=== PATIENT | female | born 2005 | race Caucasian/White ===

== ENCOUNTER 2023-06-28 17:00 | Emergency (ER) | payer OTHER ==
[~2023-06-28] VITALS: Ht 175.3 cm; Wt 77.3 kg
[2023-06-28 17:06] VITALS: TEMP 99.1
[2023-06-28 17:50] LABS: HEMATOCRIT 37.9 % (35.0-45.0); HEMOGLOBIN 12.6 g/dl (12.0-15.0); MEAN CELL VOLUME 87 fl (80.0-95.0); MEAN CORPUSCULAR HEMOGLOBIN 29 pg (26-32); MEAN CORPUSCULAR HGB CONC 33 g/dl (33.0-37.0); MEAN PLATELET VOLUME 8.9 fl (7.4-10.4); PLATELET COUNT 338 K/mm3 (130-400); RED BLOOD COUNT 4.34 M/mm3 (4.10-5.30); REDCELL DISTRIBUTION WIDTH-CV 12.4 % (11.5-14.5)
[2023-06-28 18:12] LABS: CALCIUM 9.3 mg/dL (8.4-10.2); CREATININE, serum 0.84 mg/dL (0.57-1.11); POTASSIUM 3.9 mmol/L (3.5-4.5); TOTAL PROTEIN 7.6 gm/dL (6.2-8.1)
[2023-06-28 18:17] LABS: BAND 5 % (0-10); EOSINOPHIL 17 % (0-4); LYMPHOCYTE 11 % (20.0-51.0); NEUTROPHILS 66 % (42.0-75.2)
[2023-06-28 18:26] LABS: BILIRUBIN,TOTAL 0.3 mg/dL (0.2-1.2)
--- NOTE | 2023-06-28 20:12 | NUR ---
PT STATES SHE HAS NO RESPIRATORY HX BUT DOES STATE HER CHEST FEELS TIGHT WHEN BREATHING.
[2023-06-28] MEDS ORDERED: PREDNISONE20 MG PO (21:27)
[2023-06-28] MEDS ORDERED: DOXYCYCLINE 10100 MG PO (21:27)
[2023-06-28 22:11] VITALS: BP 90/53; PULSE 119
== END 2023-06-28 22:18 | disposition home or self-care (01) ==
LOC: COL.ER 17:00
PROVIDERS: Nurse Practitioner
DX: J45.909 Unspecified asthma, uncomplicated (principal); R00.0 Tachycardia, unspecified; F17.290 Nicotine dependence, other tobacco product, uncomplicated
CPT/HCPCS: J2930; J7030

== ENCOUNTER 2023-10-08 18:20 | Emergency (ER) | payer BC ==
[~2023-10-08] VITALS: Ht 177.8 cm; Wt 77.3 kg
[~2023-10-08 18:20] MED LIST: DOXYCYCLINE 10100 MG PO; PREDNISONE20 MG PO
[2023-10-08 18:25] VITALS: TEMP 98.3
[2023-10-08] MEDS ORDERED: Amoxicillin/Clavulanate K+ 875/125 MG TAB PO ONE (18:45)
[2023-10-08] MEDS ORDERED: AMOXICILLIN 8751 TAB PO (19:22)
[2023-10-08] MEDS ORDERED: Home HYDROcodone/Acetaminophen 5/325 MG #4 TABS/PACK PO ONE (19:30)
[2023-10-08 19:49] VITALS: BP 125/82; PULSE 78
== END 2023-10-08 19:49 | disposition home or self-care (01) ==
LOC: COL.ER 18:20
DX: S61.451A Open bite of right hand, initial encounter (principal); Z23 Encounter for immunization; W54.0XXA Bitten by dog, initial encounter; Y92.89 Other specified places as the place of occurrence of the external cause